=== PATIENT | male | born 1990 | race Two or more races ===

== ENCOUNTER 2018-08-18 22:13 | Emergency (ER) | payer SELFPAY ==
[~2018-08-18] VITALS: Ht 172.7 cm; Wt 83.9 kg
[2018-08-18 22:30] VITALS: BP 137/66
== END 2018-08-19 03:14 | disposition left against medical advice (07) ==
LOC: ER 22:17
DX: R51 Headache (principal); L02.212 Cutaneous abscess of back [any part, except buttock and flank]; Z53.21 Procedure and treatment not carried out due to patient leaving prior to being seen by health care provider